=== PATIENT | female | born 1990 | race Caucasian/White ===

== ENCOUNTER 2018-06-02 05:34 | Inpatient (IN) | payer OTHER ==
[~2018-06-02] VITALS: Ht 157.5 cm; Wt 68.0 kg
[2018-06-02] MEDS ORDERED: PRENATAL TABLE1 EAC1 PO (06:22)
[2018-06-04] MEDS ORDERED: PREPLUS CA-FE1 EACH PO (12:16)
[2018-06-04] MEDS ORDERED: DOCUSATE SODIU100 MG PO (12:16)
[2018-06-04] MEDS ORDERED: GAS RELIEF125 MG PO (12:16)
[2018-06-04] MEDS ORDERED: IBUPROFEN800 MG PO (12:16)
[2018-06-04] MEDS ORDERED: ACETAMINOPHEN500 M1 PO (12:16)
== END 2018-06-04 13:52 | DRG 766 ==
LOC: LDR 05:34 → OB/GYN 18:06
PROVIDERS: Obstetrics & Gynecology
PROC: 10907ZC Drainage of Amniotic Fluid, Therapeutic from Products of Conception, Via Natural or Artificial Opening (ICD-10-PCS; 2018-06-02)
PROC: 3E0P7VZ Introduction of Hormone into Female Reproductive, Via Natural or Artificial Opening (ICD-10-PCS; 2018-06-02)
PROC: 4A1HXCZ Monitoring of Products of Conception, Cardiac Rate, External Approach (ICD-10-PCS; 2018-06-02)
PROC: 10D00Z1 Extraction of Products of Conception, Low, Open Approach (ICD-10-PCS; principal; 2018-06-02 17:15)
DX: O61.0 Failed medical induction of labor (principal); O24.420 Gestational diabetes mellitus in childbirth, diet controlled; Z3A.41 41 weeks gestation of pregnancy; Z37.0 Single live birth